=== PATIENT | female | born 1985 | race Two or more races ===

== ENCOUNTER 2022-04-01 13:02 | Emergency (ER) | payer SELFPAY ==
[~2022-04-01] VITALS: Ht 160 cm; Wt 68.0 kg
[2022-04-01 13:02] VITALS: BP 112/69
--- NOTE | 2022-04-01 16:42 | NUR ---
Patient discharged to home in stable condition. Written and verbal after care instructions given. Patient verbalizes understanding of instruction.
== END 2022-04-01 16:42 | disposition home or self-care (01) ==
LOC: ER 13:04
DX: J06.9 Acute upper respiratory infection, unspecified (principal)
CPT/HCPCS: 71045-TC